=== PATIENT | male | born 1965 | race American Indian/Alaskan Native ===

== ENCOUNTER 2021-10-10 15:21 | Emergency (ER) | payer SELFPAY ==
[2021-10-10 16:31] VITALS: BP 170/104
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
--- NOTE | 2021-10-10 17:44 | Consultation ---
Medications and Allergies Allergies Allergy/AdvReac Type Severity Reaction Status Date / Time No Known Allergies Allergy Verified 12/06/15 00:03 Home Medications Medication Instructions Recorded Confirmed Last Taken Type traMADoL [Ultram 50 MG tab] 50 mg PO Q6HR PRN #12 tablet 03/30/16 Unknown Rx Physical Examination - Vital Signs Vital Signs: Vital Signs Temp Pulse Resp BP Pulse Ox 97.4 F L 85 16 170/104 99 10/10/21 16:30 10/10/21 16:30 10/10/21 16:30 10/10/21 16:30 10/10/21 16:30 Results - Laboratory Findings Abnormal Lab Findings: Abnormal Labs 10/10/21 16:33 POC Glucose 107 H Assessment and Plan [facility] Consult Note # Demographics Consult Type: Acute Stroke Level 1 (0-4.5 hrs) Patient Location: Emergency Room First Name: Eligio Last Name: Suhail Date of : 1965 Age: 55 Gender: Male Facility: [facility] Time of Initial Page (Eastern Time): 10/10/2021, 16:35 Time of Return Call (Eastern Time): 10/10/2021, 16:36 # HPI History: 55M with 22:00 right numbness. TIA in the past. Right minor weakness reported. # Exam Additional Neurologic Exam: Partial exam while patient in CT, no consistent weakness/drift, speech clear. # Data Head CT: no bleed preliminarily reviewed by me, please refer to radiology read for official reading # Plan Additional Recommendations: patient left AMA. # Logistics Telemedicine: Interactive 2 way audio and visual telecommunication technology was utilized during this visit
--- NOTE | 2021-10-10 18:26 | Cat Scan Report ---
CT HEAD WITHOUT CONTRAST INDICATION / CLINICAL INFORMATION: CODE STROKE PROTOCOL!!!. TECHNIQUE: All CT scans at this location are performed using CT dose reduction for ALARA by means of automated e xposure control. COMPARISON: Head CT 03/29/2016 FINDINGS: HEMORRHAGE: No evidence of intracranial hemorrhage or extra-axial fluid collection. EXTRA-AXIAL SPACES: Cortical sulci, sylvian fissures and basilar cisterns have an unremarkable appear ance. VENTRICULAR SYSTEM: The third and lateral ventricles are of normal size and configuration. CEREBRAL PARENCHYMA: No areas of abnormal brain parenchymal attenuation are identified. There is no i ndication of recent infarction. MIDLINE SHIFT OR HERNIATION: There is no mass effect. CEREBELLUM / BRAINSTEM: Brainstem and cerebellum have an unremarkable appearance. MIDLINE STRUCTURES:No abnormalities of the pituitary gland or pineal region are identified. INTRACRANIAL VESSELS:No abnormalities are identified on this noncontrast head CT. ORBITS: visualized portions of the orbits have an unremarkable appearance. SOFT TISSUES of HEAD: No significant abnormality. CALVARIUM: Evaluation of bone windows reveals no abnormalities. PARANASAL SINUSES / MASTOID AIR CELLS: Mucosal disease is present within the right sphenoid sinus and left maxillary sinus. Visualized portions of the paranasal sinuses are otherwise free from inflammat ory mucosal disease. Mastoid air cells are normally pneumatized. IMPRESSION: 1. No acute intracranial abnormality. No significant interval change. CODE STROKE: Time of Communication ([employer]ATION [employer]PERVISOR/CDT): 1720 Central standard time Licensed Practitioner Receiving Report: Frederick Thompson Signer Name: Armaan Ledesma MD Signed: 10/10/2021 6:21 PM Workstation Name: [id number]
== END 2021-10-10 17:20 | disposition left against medical advice (07) ==
LOC: ED 15:21
DX: G81.91 Hemiplegia, unspecified affecting right dominant side (principal); R07.89 Other chest pain; F17.200 Nicotine dependence, unspecified, uncomplicated
CPT/HCPCS: 70450; 82962; 99283

== ENCOUNTER 2022-03-10 01:15 | Emergency (ER) | payer SELFPAY ==
[2022-03-10 01:24] VITALS: BP 166/82
== END 2022-03-10 03:25 | disposition left against medical advice (07) ==
LOC: ED 01:15
DX: R22.40 Localized swelling, mass and lump, unspecified lower limb (principal); Z53.21 Procedure and treatment not carried out due to patient leaving prior to being seen by health care provider